=== PATIENT | female | born 1955 | race Caucasian/White ===

== ENCOUNTER 2018-04-24 12:10 | Outpatient (REF) | payer OTHER, SELFPAY ==
[2018-04-24 19:27] LABS: HCT 39.7 % (36.0-46.0); HGB 13.4 g/dL (12.0-15.5); Mean Corp. HGB Concentration 33.8 g/dL (32.0-36.0); Mean Corpuscular Volume 85.9 fL (80-95); Mean Platelet Volume 10.7 fL (8.0-11.0); Platelet Count 234 x1000/uL (130-400); RBC 4.62 m/cumm (4.00-5.20); RBC Distribution Width 12.6 % (11.7-14.6); White Blood Cell Count 11.49 k/cumm (4.4-10.8)
== END 2018-04-24 12:30 ==
LOC: NCHCN 12:10
PROVIDERS: PCP Internal Medicine; Visit Provider Nurse Practitioner Family
DX: K57.92 Diverticulitis of intestine, part unspecified, without perforation or abscess without bleeding (principal)
CPT/HCPCS: 85027

== ENCOUNTER 2018-06-04 15:07 | Outpatient (REF) | payer OTHER, SELFPAY ==
[2018-06-04 19:33] LABS: Anion Gap 10.1 mmol/L (3-11); BUN 13 mg/dL (7-18); CO2 26.9 mmol/L (21.0-32.0); CREATININE 0.77 mg/dL (0.55-1.02); Calcium 9.7 mg/dL (8.5-10.1); Chloride 104 mmol/L (98-107); Glucose 94 mg/dL (70-100); Potassium 3.9 mmol/L (3.5-5.1); Sodium 141 mmol/L (136-145); TSH 0.32 uIU/mL (0.358-3.74)
== END 2018-06-04 15:27 ==
LOC: NCHCN 15:07
PROVIDERS: PCP Internal Medicine; Visit Provider Physician Assistant Medical
DX: E03.9 Hypothyroidism, unspecified (principal)
CPT/HCPCS: 80048; 84443

== ENCOUNTER 2018-12-10 18:53 | Outpatient (REF) | payer OTHER, BC, SELFPAY | END 2018-12-10 19:13 | LOC: NCHCN 18:53 | PROVIDERS: PCP Internal Medicine; Visit Provider Nurse Practitioner Family | DX: N39.0 Urinary tract infection, site not specified (principal) | CPT/HCPCS: 87077; 87086; 87186 ==

== ENCOUNTER 2019-05-12 16:37 | Outpatient (REF) | payer BC, SELFPAY ==
[2019-05-12 18:47] LABS: HGB 12.5 g/dL (12.0-15.5); Mean Corp. HGB Concentration 32.9 g/dL (32.0-36.0); Mean Corpuscular Hemoglobin 28.7 pg (27.0-33.0); Mean Corpuscular Volume 87.2 fL (80-95); Mean Platelet Volume 10.2 fL (8.0-11.0); Platelet Count 416 x1000/uL (130-400); RBC 4.36 m/cumm (4.00-5.20); RBC Distribution Width 12.8 % (11.7-14.6); White Blood Cell Count 11.95 k/cumm (4.4-10.8)
== END 2019-05-12 16:57 ==
LOC: NCHCN 16:37
PROVIDERS: PCP Internal Medicine; Visit Provider Nurse Practitioner Family
DX: R10.32 Left lower quadrant pain (principal)
CPT/HCPCS: 85027

== ENCOUNTER 2020-01-12 14:03 | Outpatient (REF) | payer BC, SELFPAY ==
[2020-01-12 20:13] LABS: Anion Gap 9.3 mmol/L (3-11); BUN 11 mg/dL (7-18); CO2 27.7 mmol/L (21.0-32.0); CREATININE 0.76 mg/dL (0.55-1.02); Calcium 9.6 mg/dL (8.5-10.1); Calculated LDL 165 mg/dL (<100); Chloride 104 mmol/L (98-107); Cholesterol 237 mg/dL (<200); Glucose 88 mg/dL (74-106); HDL Cholesterol 50 mg/dL (40-60); Potassium 4.2 mmol/L (3.5-5.1); Sodium 141 mmol/L (136-145); TSH 2.59 uIU/mL (0.36-3.74); Triglyceride 110 mg/dL (<150)
== END 2020-01-12 14:23 ==
LOC: NCHCN 14:03
PROVIDERS: PCP Internal Medicine; Visit Provider Nurse Practitioner Family
DX: E03.9 Hypothyroidism, unspecified (principal); Z13.220 Encounter for screening for lipoid disorders
CPT/HCPCS: 80048; 80061; 84443

== ENCOUNTER 2020-07-07 18:40 | Outpatient (REF) | payer BC, SELFPAY ==
[2020-07-07 20:29] LABS: Abs Immature Grans 0.01 10^3/uL (0.0-0.06); Absolute Basophil Count 0.06 10^3/uL (0.0-0.2); Absolute Eosinophil Count 0.12 10^3/uL (0.0-0.7); Absolute Lymphocyte Count 2.67 10^3/uL (1.2-3.4); Absolute Monocyte Count 0.57 10^3/uL (0.1-0.8); Absolute Neutrophil Count 3.67 10^3/uL (1.2-6.7); Basophils % 0.8; Eosinophils % 1.7; HCT 40.1 % (36.0-46.0); HGB 13.4 g/dL (11.2-15.7); Immature Grans % 0.1; Lymphocytes % 37.6; MCH 28.9 pg (27.0-33.0); MCHC 33.4 % (32.0-36.0); MCV 86.4 fL (80-95); MPV 11.4 fL (8.0-11.0); Neutrophils % 51.8; Nucleated RBC 0 %; Platelet Count 278 10^3/uL (130-400); RBC 4.64 10^6/uL (3.93-5.22); RDW 12.1 % (11.7-14.6); RDW-SD 38.5 fL
[2020-07-07 21:26] LABS: ALT 31 U/L (14-59); AST 23 U/L (15-37); Albumin 4.2 g/dL (3.4-5.0); Alkaline Phosphatase 70 U/L (46-116); Anion Gap 9.5 mmol/L (3-11); BUN 12 mg/dL (7-18); Bilirubin, Total 0.3 mg/dL (0.2-1.0); C-Reactive Protein 0.14 mg/dL (0.0-0.3); CO2 26.5 mmol/L (21.0-32.0); CREATININE 0.9 mg/dL (0.55-1.02); Calcium 9.3 mg/dL (8.5-10.1); Chloride 105 mmol/L (98-107); Glucose 100 mg/dL (74-106); Magnesium 1.9 mg/dL (1.8-2.4); Potassium 3.6 mmol/L (3.5-5.1); Sodium 141 mmol/L (136-145); TSH (W/Ref FT4) 5.73 uIU/mL (0.36-3.74); Total Protein 7.7 g/dL (6.4-8.2)
[2020-07-07 21:56] LABS: FREE T4 0.89 ng/dL (0.76-1.46)
[2020-07-08 16:42] LABS: Rheumatoid Factor <8.6 IU/mL (<12.0)
[2020-07-09 10:39] LABS: Lyme Ab w Rflx to Lyme Confirm Positive (Negative)
[2020-07-09 16:31] LABS: ANA Interpretation Negative (Negative)
[2020-07-14 14:25] LABS: IgG Band(s) p58; IgG Immunoblot Negative (Negative); IgM Band(s) p23; IgM Immunoblot Negative (Negative)
== END 2020-07-07 18:41 | disposition home or self-care (01) ==
LOC: NCHCN 18:40
PROVIDERS: PCP Internal Medicine; Visit Provider Physician Assistant
DX: E03.9 Hypothyroidism, unspecified (principal); K21.9 Gastro-esophageal reflux disease without esophagitis; M25.59 Pain in other specified joint
CPT/HCPCS: 80053; 86617; 83735; 84439; 84443; 85025; 86038; 86140; 86431; 86618

== ENCOUNTER 2020-08-12 16:49 | Outpatient (REF) | payer BC, SELFPAY ==
[2020-08-12 19:05] LABS: TSH (W/Ref FT4) 1.12 uIU/mL (0.36-3.74)
[2020-08-16 13:36] LABS: Lyme Ab w Rflx to Lyme Confirm Equivocal (Negative)
[2020-08-17 15:13] LABS: IgG Band(s) p93; IgG Immunoblot Negative (Negative); IgM Band(s) p23; IgM Immunoblot Negative (Negative)
== END 2020-08-12 16:50 | disposition home or self-care (01) ==
LOC: NCHCN 16:49
PROVIDERS: PCP Internal Medicine; Visit Provider Physician Assistant
DX: E03.9 Hypothyroidism, unspecified (principal); M25.59 Pain in other specified joint
CPT/HCPCS: 86617; 84443; 86618

== ENCOUNTER 2021-05-11 14:42 | Outpatient (REF) | payer BC, SELFPAY ==
[2021-05-12 21:20] LABS: COVID-19 RT-PCR UVMMC Result Negative (Negative)
== END 2021-05-11 14:43 | disposition home or self-care (01) ==
LOC: NCHCN 14:42
PROVIDERS: PCP Internal Medicine; Visit Provider Nurse Practitioner Family
DX: Z20.822 Contact with and (suspected) exposure to COVID-19 (principal); J06.9 Acute upper respiratory infection, unspecified
CPT/HCPCS: U0003

== ENCOUNTER 2021-10-12 16:56 | Outpatient (REF) | payer BC, SELFPAY ==
[2021-10-12 19:02] LABS: Abs Immature Grans 0.02 10^3/uL (0.0-0.06); Absolute Basophil Count 0.06 10^3/uL (0.0-0.2); Absolute Eosinophil Count 0.13 10^3/uL (0.0-0.7); Absolute Lymphocyte Count 1.85 10^3/uL (1.2-3.4); Absolute Monocyte Count 0.48 10^3/uL (0.1-0.8); Absolute Neutrophil Count 5.22 10^3/uL (1.2-6.7); Basophils % 0.8; Eosinophils % 1.7; HCT 39.5 % (36.0-46.0); HGB 12.6 g/dL (11.2-15.7); Immature Grans % 0.3; Lymphocytes % 23.8; MCH 27.9 pg (27.0-33.0); MCHC 31.9 % (32.0-36.0); MCV 87 fL (80-95); MPV 11.1 fL (8.0-11.0); Monocytes % 6.2; Neutrophils % 67.2; Platelet Count 334 10^3/uL (130-400); RBC 4.52 10^6/uL (3.93-5.22); RDW 12.2 % (11.7-14.6); RDW-SD 39.1 fL; WBC 7.76 10^3/uL (4.4-10.8)
[2021-10-12 19:34] LABS: ALT 25 U/L (14-59); AST 26 U/L (15-37); Albumin 4.1 g/dL (3.4-5.0); Alkaline Phosphatase 84 U/L (46-116); Anion Gap 11.3 mmol/L (3-11); BUN 15 mg/dL (7-18); Bilirubin, Total 0.4 mg/dL (0.2-1.0); CO2 23.7 mmol/L (21.0-32.0); CREATININE 0.8 mg/dL (0.55-1.02); Calcium 9.7 mg/dL (8.5-10.1); Chloride 105 mmol/L (98-107); Glucose 95 mg/dL (74-106); Potassium 4.1 mmol/L (3.5-5.1); Sodium 140 mmol/L (136-145); TSH (W/Ref FT4) 0.24 uIU/mL (0.36-3.74); Total Protein 8.1 g/dL (6.4-8.2)
[2021-10-12 20:42] LABS: Vitamin B12 737 pg/mL (193-986)
[2021-10-12 21:05] LABS: FREE T4 1.28 ng/dL (0.76-1.46)
[2021-10-13 05:27] LABS: Vitamin D 25 Total 62.4 ng/mL (30-100)
== END 2021-10-12 16:57 | disposition home or self-care (01) ==
LOC: NCHCN 16:56
PROVIDERS: PCP Internal Medicine; Visit Provider Physician Assistant
DX: E03.9 Hypothyroidism, unspecified (principal); R53.83 Other fatigue; M81.0 Age-related osteoporosis without current pathological fracture
CPT/HCPCS: 80053; 82306; 82607; 84439; 84443; 85025

== ENCOUNTER 2021-12-09 17:29 | Outpatient (REF) | payer BC, SELFPAY ==
[2021-12-09 19:23] LABS: HCT 38.4 % (36.0-46.0); HGB 12.8 g/dL (11.2-15.7); MCH 28.6 pg (27.0-33.0); MCHC 33.3 % (32.0-36.0); MCV 86 fL (80-95); MPV 11.1 fL (8.0-11.0); Platelet Count 271 10^3/uL (130-400); RBC 4.47 10^6/uL (3.93-5.22); RDW 12.4 % (11.7-14.6); RDW-SD 38.8 fL; WBC 6.57 10^3/uL (4.4-10.8)
[2021-12-09 19:53] LABS: TSH (W/Ref FT4) 0.83 uIU/mL (0.36-3.74)
[2021-12-12 13:10] LABS: IgA 337 mg/dL (85-499); Interpretation (See Note); Tissue Transglutaminase IgA <1.2 U/mL (<4.0)
== END 2021-12-09 17:30 | disposition home or self-care (01) ==
LOC: NCHCN 17:29
PROVIDERS: PCP Internal Medicine; Visit Provider Physician Assistant
DX: E03.9 Hypothyroidism, unspecified (principal); R10.9 Unspecified abdominal pain; K92.1 Melena; Z83.79 Family history of other diseases of the digestive system
CPT/HCPCS: 82784; 83516; 85027; 84443

== ENCOUNTER 2022-10-18 09:28 | Outpatient (REF) | payer BC, SELFPAY ==
--- OUTSIDE RECORDS SUMMARY | 2022-10-18 09:30 | XMS_ITS | Continuity of Care Document ---
Author Name Unknown Organization [facility] Address [address] [place] [address] Care Team Providers Care Filter Plant Operator Name Role Phone Mercedes Chavarria Primary Care Physician Encounter [facility] Date(s): 03/24/22 - 03/24/[address] [address] Discharge Disposition: Home or Self Care Attending Physician: Ryan Lambert MD Admitting Physician: Ryan Lambert MD Referring Physician: Mercedes Chavarria PA-C Allergies, Adverse Reactions, Alerts Substance Reaction Severity Status HONEY Unknown Active ciprofloxacin Unknown Active doxycycline Urticaria Unknown Active erythromycin Skin rash Unknown Active amoxicillin Skin rash Unknown Active aspirin Asthmatic breath sounds Unknown Acti ve influenza virus vaccine, inactivated Skin rash Unkn own Active metroNIDAZOLE Skin rash Unknown Active Mushroom Unknown Active NSAIDs Unknown Active sulfa drugs Unknown Active Assessment and Plan Future Appointments Functional Status 03/24/22 Anti-Embolism Device Activity: In place Anti-Embolism Site Condition: No complic ations 03/24/22 ADLs Independent Family Member Travel History No recent t ravel Recent Travel History No recent travel Other exposure to Infectious Disease Non e Immunizations Given and Recorded Vaccine Date Status Refusal Reason SARS-CoV-2 (COVID-19) Ad26 vaccine 02/10/21 Record ed SARS-CoV-2 (COVID-19) Ad26 vaccine 06/09/20 Record ed Medications doxepin 10 mg oral capsule 0 Refill(s) Start Date: 11/03/21 Status: Ordered lidocaine 5% topical film 1 patches, Topical, Daily, remove patches after 12 hours, # 30 patches, 0 Refill(s), Pharmacy: [id number], 152.4, cm, 11/03/21 10:06:00 EDT, Height/Length Dosing, 58.06, kg, 11/03/21 10:06:00 EDT, Weight Dosing Start Date: 11/03/21 Status: Ordered metoprolol succinate 0 Refill(s) Start Date: 11/03/21 Status: Ordered multivitamin adult, oral tablet 0 Refill(s) Start Date: 11/03/21 Status: Ordered niacin 0 Refill(s) Start Date: 11/03/21 Status: Ordered omeprazole 0 Refill(s) Start Date: 11/03/21 Status: Ordered Percocet 5 mg-325 mg oral tablet 1 tab, Oral, every 6 hr, PRN as needed for pain, for post op pain, # 18 tab, 0 Refill(s), Pharmacy:[id number], 152, cm, 03/18/22 13:55:00 EST, Height/Length Dosing, 58.06, kg, 03/18/22 13:55:00 EST, Weight Dosing Start Date: 03/23/22 Status: Ordered Synthroid 0 Refill(s) Start Date: 11/03/21 Status: Ordered Topamax 0 Refill(s) Start Date: 11/03/21 Status: Ordered Problem List Condition Confirmation Course Effective Dates Status H ealth Status Informant Asthma Confirmed Active Central retinal vein occlusion Confirmed Active Depressive disorder Confirmed Active Diverticulitis Confirmed Active Dysphagia Confirmed Active Fibrocystic disease of breast Confirmed Active Fracture of distal fibula Confirmed Active Gastroesophageal reflux disease Confirmed Active Migraine without aura Confirmed Active Osteoarthritis Confirmed Active Tension-type headache Confirmed Active Procedures Procedure Date Related Diagnosis Body Site Status Colonoscopy 02/07/22 Completed EGD (esophagogastroduodenosc opy) gastric outlet reduction 02/07/22 Complet ed EGD - Esophagogastroduodenoscopy 1 11/20/16 Completed Colonoscopy 01/26/16 Completed Breast lumpectomy 2009 Compl eted Colonoscopy 2009 Completed Dilation and curettage 05/29/05 Co mpleted Colonoscopy 2004 Completed Breast lumpectomy 1996 Complet ed Ovarian cystectomy 1976 Comple ty Tubal ligation Completed 1Reflux 2excision lump Vital Signs Most recent to oldest [Reference Range]: 1 2 3 Temperature Oral [35.8-37.3 Deg C] 37.2 Deg C (03/24/22 7:21 AM) Temperature Temporal Artery [36-38 Deg C] 36.3 Deg C (03/24/22 9:40 AM) Temperature Temporal Artery (DegF) [97.3-100 Deg F] 97.34 Deg F (03/24/22 9:40 AM) Peripheral Pulse Rate [60-100 bpm] 81 bpm (03/24/22 11:00 AM) 92 bpm (03/24/22 10:30 AM) 93 bpm (03/24/22 10:00 AM) Heart Rate Monitored [60-100 bpm] 81 bpm (03/24/22 11:00 AM) 89 bpm (03/24/22 10:30 AM) 93 bpm (03/24/22 10:00 AM) Respiratory Rate [12-24 br/min] 11 br/min *LOW* (03/24/22 11:00 AM) 17 br/min (03/24/22 10:30 AM) 12 br/min (03/24/22 10:00 AM) Blood Pressure [90-140/60-90 mmHg] 150/86mmHg *HI* (03/24/22 11:00 AM) 153/72mmHg *HI* (03/24/22 10:30 AM) 145/87mmHg *HI* (03/24/22 10:00 AM) Mean Arterial Pressure, Cuff [65-140 mmHg] 107 mmHg (03/24/22 11:00 AM) 99 mmHg (03/24/22 10:30 AM) 106 mmHg (03/24/22 10:00 AM) Blood Pressure Location Right arm (03/24/22 7:21 AM) Blood Pressure Method Automatic (03/24/22 7:21 AM) Weight 58.2 kg (03/24/22 7:21 AM) Weight Estimated 58.06 kg (03/22/22 1:43 PM) Height 152 cm (03/24/22 7:21 AM) Social History Social History Type Response Tobacco Never tobacco user T obacco Use:. Sex Female Implantable Device List Procedure Provider Procedure Date Device Type Site Open treatment of bimalleolar ankle fracture (eg, lateral and medial malleoli, or lateral and posterior malleoli, or medial and posterior malleoli), includes internal fixation, when performed Ryan Lambert MD 03/24/22 Non Biological A nkle L Device Identifier Serial Number Lot or Batch Number Manufacturing Date Expiration Date Distinct Identification Code MRI Safety Implantable Status Assigning Authority Unknown Unknown [id number] Unknown 02/27/24 Unknown Unknown Active Unknown Unknown Unknown [id number] Unknown 02/27/24 Unknown Unknown Active Unknown Unknown Unknown [id number] Unknown 02/27/24 Unknown Unknown Active Unknown Unknown Unknown [id number] Unknown 02/27/24 Unknown Unknown Active Unknown Unknown Unknown [id number] Unknown 02/27/24 Unknown Unknown Active Unknown Unknown Unknown [id number] Unknown 02/27/24 Unknown Unknown Active Unknown Unknown Unknown [id number] 03/09/22 Unknown 03/08/24 Unknown Unknown Active Unknown Unknown Unknown [id number] 03/09/22 Unknown 03/08/24 Unknown Unknown Active Unknown Hospital Discharge Instructions Patient Education 03/24/2022 08:57:36 Crutch Use, Adult, [id number] Crutch Use, Adult Crutches are used to take weight off of one of your legs or feet when you stand or walk. You may need crutches to help you heal after an injury or procedure. It is important to use crutches that fit right. Your crutches fit right if: ??? You can fit two or three fingers between your armpit and the crutch. ??? You use your hands, not your armpits, to hold yourself up. It is important that a doctor has seen you use crutches the right way before you use them at home. What are the risks? Using crutches the wrong way can hurt your shoulders, arms, back, armpits, wrists, and hands. To avoid this: ??? Make sure your crutches fit right. ??? Do not put pressure on your armpits when using the crutches. While using crutches, you also have a higher risk of falling. To avoid this: ??? Move objects away from the floor or area where you walk when possible. Get help as needed. ??? Keep walkways well lit. ??? Use a backpack to carry items. How to use your crutches How you use your crutches will depend on why you need them. Your doctor may tell you not to supportyour body weight (bear weight) on your hurt leg. Or your doctor may let you put some, but not all, of your weight on the hurt leg. Follow instructions from your doctor about putting weight on your leg. Do not put weight on your leg in an amount that causes pain. Walking 1. Stand on your good leg and lift both crutches at the same time. 2. Place the crutches one step-length in front of you. Keep your weight over the hand business management manager. 3. Bring the good leg forward to meet the crutches or to land a little bit ahead of them. 4. Repeat. Going up steps If there is no handrail: 1. Walk up to steps and put weight on hand business management manager to step up. 2. Step up with your good leg. 3. Step up with the crutches and your hurt leg. 4. Repeat. If there is a handrail: 1. Hold both crutches in one hand. 2. Place your other hand on the handrail. 3. Put your weight on your arms and lift your good leg up to the step. 4. Bring the crutches and the hurt leg up to that step. 5. Repeat. If you do not feel steady on steps, you can go up steps on your butt. 1. Sit on the lowest step. ??? Have your hurt leg out in front. ??? Hold both crutches flat on the stairs in one hand. 2. Scoot your butt up to the next step. Use your free hand and your good leg to help you do this. Going down steps If there is no handrail: 1. Step down with your hurt leg and crutches. Keep the crutch tips in the center of the step. Do not put crutch tips close to the edge of the step. 2. Step down with your good leg. 3. Repeat. If there is a handrail: 1. Place one hand on the handrail. 2. Hold both crutches with your free hand. 3. Lower your hurt leg and crutches to the step below you. Keep the crutch tips in the center of the step. Do not put the crutch tips close to the edge of the step. 4. Lower your good leg to the next step. 5. Repeat. If you do not feel steady on steps, you can go down steps on your butt. 1. Sit on the highest step. ??? Have your hurt leg out in front. ??? Use your other hand to hold both crutches flat on the stairs. 2. Scoot your butt down to the next step. Use the free hand and your good leg to help you do this. Standing up ??? Move to the edge of the seat. If there is an armrest: 1. Hold the hurt leg forward. 2. Grab the armrest with one hand. Use the other hand to grab the top of the crutches. 3. Use the armrest and your crutches to pull yourself up to stand. If there is no armrest: 1. Hold the hurt leg forward. 2. Hold on to the seat with one hand. Use the other hand to hold the top of the crutches. 3. Use the seat and your crutches to bring yourself up to stand. Sitting down ??? Move back until your leg touches the edge of the seat. If there is an armrest: 1. Hold the hurt leg forward. 2. Grab the armrest with one hand. Use the other hand to grab the top of the crutches. 3. Slowly lower yourself to sit. If there is no armrest: 1. Hold the hurt leg forward. 2. Reach for and hold on to the seat with one hand. Use the other hand to hold on to the top of thecrutches. 3. Slowly lower yourself to sit. Get help if: ??? You feel unsteady using crutches. ??? You have any new pain. ??? You lose feeling (feel numb) or you have a tingling feeling. ??? Your crutches do not fit. Get help right away if: ??? You fall. Summary ??? Crutches are used to take weight off of a leg or foot when you stand or walk. ??? Make sure your crutches fit right, and do not put pressure on your armpits when using the crutches. ??? Follow instructions from your doctor about putting weight on your hurt leg. This information is not intended to replace advice given to you by your health care provider. Make sure you discuss any questions you have with your health care provider. Document Revised: 10/08/2019 Document Reviewed: 10/08/2019 Elsevier Patient Education ?? 2021 [employer] Discharge instructions * Andrew Henderson RN: PERFORM Event Display: Discharge Instructions Authored Date: [id number] MICHAEL RUIZ :1955 Age:66 years Sex:Female Visit Date:03/24/2022 Primary Care Physician: Mercedes Chavarria PA-C Hospital Discharge Instructions We would like to thank you for allowing us to assist you with your healthcare needs. The following includes patient education materials and information regarding your injury/illness. After you leave the hospital, you may get your health information including your test results, physician notes and discharge information by accessing your Patient Portal. Your Next Steps Instructions From Your Care Team Orthopedic Surgery Discharge Instructions keep splint clean and dry until follow up in ortho office non weight bearing on operative side ? Pain Control ?Take your pain relief medication when discomfort first begins. ?Can use stool softener while taking the narcotic to avoid problems with constipation. ?It is okay to start [id number] Naproxen or Ibuprofen??immediately ?? Call your doctor if you: ?Develop a fever over 101 degrees. ?Have increased redness, warmth, discharge, swelling, or hardness around the operative site. ?Circulation changes such as tingling, numbness or your toes appear blue or white. ?Your pain is not adequately controlled, despite taking your pain medication routinely. ?? On the day of surgery, or while taking narcotic pain medication: No driving, operating power equipment,?? drinking alcohol,?? or taking mood altering drugs? Apply warm, moist compress to IV site if sore or red, for 20 minutes, 4 times a day, for 2-3 days.?? Call your doctor if IV site soreness or redness persists. In the event of any problems after surgery, contact your doctor or the Emergency Room @ . Ortho Office: [phone] Scheduled Future Appointments 2022:45 AM EST ?? With: Ryan Lambert MD Where: [facility] [address], [address] [place] [address] Status: Confirmed Your Summary Your Care Team Admitting Physician - Ryan Lambert MD Attending Physician - Ryan Lambert MD Primary Care Physician - Mercedes Chavarria PA-C Referring Physician - Mercedes Chavarria PA-C Allergies HONEY Mushroom NSAIDs amoxicillin??(Skin rash) aspirin??(Asthmatic breath sounds) ciprofloxacin doxycycline??(Urticaria) erythromycin??(Skin rash) influenza virus vaccine, inactivated??(Skin rash) metroNIDAZOLE??(Skin rash) sulfa drugs Education Materials Crutch Use, Adult Crutches are used to take weight off of one of your legs or feet when you stand or walk. You may need crutches to help you heal after an injury or procedure. It is important to use crutches that fit right. Your crutches fit right if: ? You can fit two or three fingers between your armpit and the crutch. ? You use your hands, not your armpits, to hold yourself up. It is important that a doctor has seen you use crutches the right way before you use them at home. What are the risks? Using crutches the wrong way can hurt your shoulders, arms, back, armpits, wrists, and hands. To avoid this: ? Make sure your crutches fit right. ? Do not put pressure on your armpits when using the crutches. While using crutches, you also have a higher risk of falling. To avoid this: ? Move objects away from the floor or area where you walk when possible. Get help as needed. ? Keep walkways well lit. ? Use a backpack to carry items. How to use your crutches How you use your crutches will depend on why you need them. Your doctor may tell you not to supportyour body weight (bear weight) on your hurt leg. Or your doctor may let you put some, but not all, of your weight on the hurt leg. Follow instructions from your doctor about putting weight on your leg. Do not put weight on your leg in an amount that causes pain. Walking 1.?? Stand on your good leg and lift both crutches at the same time. 2.?? Place the crutches one step-length in front of you. Keep your weight over the hand business management manager. 3.?? Bring the good leg forward to meet the crutches or to land a little bit ahead of them. 4.?? Repeat. Going up steps If there is no handrail: 1.?? Walk up to steps and put weight on hand business management manager to step up. 2.?? Step up with your good leg. 3.?? Step up with the crutches and your hurt leg. 4.?? Repeat. If there is a handrail: 1.?? Hold both crutches in one hand. 2.?? Place your other hand on the handrail. 3.?? Put your weight on your arms and lift your good leg up to the step. 4.?? Bring the crutches and the hurt leg up to that step. 5.?? Repeat. If you do not feel steady on steps, you can go up steps on your butt. 1.?? Sit on the lowest step. ? Have your hurt leg out in front. ? Hold both crutches flat on the stairs in one hand. 2.?? Scoot your butt up to the next step. Use your free hand and your good leg to help you do this. Going down steps If there is no handrail: 1.?? Step down with your hurt leg and crutches. Keep the crutch tips in the center of the step. Do not put crutch tips close to the edge of the step. 2.?? Step down with your good leg. 3.?? Repeat. If there is a handrail: 1.?? Place one hand on the handrail. 2.?? Hold both crutches with your free hand. 3.?? Lower your hurt leg and crutches to the step below you. Keep the crutch tips in the center of the step. Do not put the crutch tips close to the edge of the step. 4.?? Lower your good leg to the next step. 5.?? Repeat. If you do not feel steady on steps, you can go down steps on your butt. 1.?? Sit on the highest step. ? Have your hurt leg out in front. ? Use your other hand to hold both crutches flat on the stairs. 2.?? Scoot your butt down to the next step. Use the free hand and your good leg to help you do this. Standing up ? Move to the edge of the seat. If there is an armrest: 1.?? Hold the hurt leg forward. 2.?? Grab the armrest with one hand. Use the other hand to grab the top of the crutches. 3.?? Use the armrest and your crutches to pull yourself up to stand. If there is no armrest: 1.?? Hold the hurt leg forward. 2.?? Hold on to the seat with one hand. Use the other hand to hold the top of the crutches. 3.?? Use the seat and your crutches to bring yourself up to stand. Sitting down ? Move back until your leg touches the edge of the seat. If there is an armrest: 1.?? Hold the hurt leg forward. 2.?? Grab the armrest with one hand. Use the other hand to grab the top of the crutches. 3.?? Slowly lower yourself to sit. If there is no armrest: 1.?? Hold the hurt leg forward. 2.?? Reach for and hold on to the seat with one hand. Use the other hand to hold on to the top of the crutches. 3.?? Slowly lower yourself to sit. Get help if: ? You feel unsteady using crutches. ? You have any new pain. ? You lose feeling (feel numb) or you have a tingling feeling. ? Your crutches do not fit. Get help right away if: ? You fall. Summary ? Crutches are used to take weight off of a leg or foot when you stand or walk. ? Make sure your crutches fit right, and do not put pressure on your armpits when using the crutches. ? Follow instructions from your doctor about putting weight on your hurt leg. This information is not intended to replace advice given to you by your health care provider. Make sure you discuss any questions you have with your health care provider. Document Revised: 10/08/2019 Document Reviewed: 10/08/2019 Elsevier Patient Education ?? 2021 [employer] Patient Name:MICHAEL RUIZ I have received this information and my questions have been answered. Patient/Front Desk Admin Name: Patient/Front Desk Admin Signature: Relationship to Patient: Witness Name/Signature: Date: Electronically Signed on: 03/24/2022 11:00 ESTSigned by:TD History and physical note * Ivory Stroud: PERFORM Event Display: History and Physical Authored Date: [id number] MICHAEL RUIZ :1955 Age:66 years Sex:Female Primary Care Physician: Mercedes Chavarria PA-C Visit Date:??03/22/2022 [1] Chief Complaint L distal fibula fx, DOI 03/18/22--slipped on the ice ?? History of Present Illness Patient??is a??66-year-old female who slipped on the ice on March 18, 2022??with her foot??moving outwards??into E version and she??felt and heard a pop and had pain along the lateral aspect of her??left leg.?? Patient was evaluated??by Dr. Santillan in the emergency room and x-rays revealed her to have a distal fibular fracture just above the syndesmosis. ??She was splinted and she is here in follow-up care.?? 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 She has been on crutches since her injury. ?? Physical Exam Patient seen with her present.?? Looking at the left ankle??there is swelling and bruising laterally with extinct pain along the distal fibula.?? Medially she does have some bruising??but only some mild pain??posterior to the medial malleolus.?? Some mild pain??along the anterior ankle joint.?? Pulses are present distally??x2. ??Calf is soft. ?? X-rays were reviewed left ankle??and we can see that she has a short oblique??fracture??of the distal fibula just above the??syndesmosis.?? Mortise is??intact.?? On the lateral??fracture can be seen??but is nondisplaced. ??Talus centered under the tibia. Assessment/Plan 1.??Fracture of distal fibula??S82.839A ?Patient has a left distal fibular fracture.?? Fracture is just above the syndesmosis??and is short oblique??in orientation.?? We had a??discussion about her options??and??she finally decided toproceed to??reduction and fixation??using plate and screws??which would eliminate the possibility of ??altered position of the ankle in the future.?? It might also shorten??her time??which she has to remain nonweightbearing.?? Risks and complications include injuries to local structures including the??terminal portion of the superficial peroneal nerve. ??There could be infection.?? Hardware may have to be removed.?? Stiffness of the ankle could occur.?? No guarantees were given and the above list of complication was not exhaustive.?? Benefits and alternatives were discussed including not to proceed to surgery??and submitted Manish. ??We could then follow her with x-rays.?? Period of casting??without surgery would likely be longer.?? She preferred to proceed with surgery.?? Questions were an swered and concerns were addressed.?? Patient will be splinted for today??and we will??schedule radha soon as possible.?? She remains out of work till then. ?Ordered: Surgical Procedure Booking Request, 03/22/22 11:01:00 Fausto KIM Stephane MD, Primary Procedure, ORIF Left Distal FIbula, BMI: 24.2 Length of procedure: 1 hr. Dx. Left idstal fibular fracture Procedure: ORIF L Distal Fibula Equipment: [employer] ankle set C-arm Outpatient surgery... ?? Problem List/Past Medical History Ongoing ?Asthma ??Central retinal vein occlusion ??Depressive disorder ??Diverticulitis ??Dysphagia ??Fibrocystic disease of breast ??Fracture of distal fibula ??Gastroesophageal reflux disease ??Migraine without aura ??Osteoarthritis ??Tension-type headache Historical ?No qualifying data Procedure/Surgical History ???EGD - Esophagogastroduodenoscopy (11/21/2016)???Colonoscopy (01/27/2016)???Breast lumpectomy (2009)???Colonoscopy (2009)???Dilation and curettage (05/30/2005)???Colonoscopy (2004)???Breast lumpectomy (1996)???Ovarian cystectomy (1975)???Tubal ligation ?? Medications ??doxepin 10 mg oral capsule ??lidocaine 5% topical film, 1 patches, Topical, Daily ??metoprolol succinate ??multivitamin adult, oral tablet ??niacin ??omeprazole ??Synthroid ??Topamax Allergies HONEY NSAIDs amoxicillin??(Skin rash) aspirin??(Asthmatic breath sounds) ciprofloxacin doxycycline??(Urticaria) erythromycin??(Skin rash) influenza virus vaccine, inactivated??(Skin rash) metroNIDAZOLE??(Skin rash) sulfa drugs [2] [1]??Office Visit Note; Ryan Lambert MD 03/22/2022 12:33 EST [2]??Office Visit Note; Ryan Lambert MD 03/22/2022 12:33 EST Electronically Signed on 03/22/22 02:07 PM Ivory Stroud Ryan Lambert MD Patient Care team information Personnel Name: Mercedes Chavarria PA-C Address: Address: [address] [address]- [place]
--- OUTSIDE RECORDS SUMMARY | 2022-10-18 09:30 | XMS_ITS | Continuity of Care Document ---
Author Name Unknown Organization [facility] Address [address] [place] [address] Care Team Providers Care [employer] Name Role Phone Mercedes Chavarria Primary Care Physician Encounter [email or web address] Date(s): 06/26/22 - 06/26/[address] [phone] Discharge Disposition: Home or Self Care Attending Physician: Mercedes Chavarria PA-C Admitting Physician: Mercedes Chavarria PA-C Referring Physician: Mercedes Chavarria PA-C Allergies, Adverse Reactions, Alerts Substance Reaction Severity Status HONEY Unknown Active ciprofloxacin Unknown Active doxycycline Urticaria Unknown Active erythromycin Skin rash Unknown Active amoxicillin Skin rash Unknown Active aspirin Asthmatic breath sounds Unknown Acti ve influenza virus vaccine, inactivated Skin rash Unkn own Active sulfa drugs Unknown Active NSAIDs Unknown Active metroNIDAZOLE Skin rash Unknown Active Mushroom Unknown Active Assessment and Plan Future Appointments Immunizations Given and Recorded Vaccine Date Status Refusal Reason SARS-CoV-2 (COVID-19) Ad26 vaccine 02/10/21 Record ed SARS-CoV-2 (COVID-19) Ad26 vaccine 06/09/20 Record ed Medications doxepin 10 mg oral capsule 0 Refill(s) Start Date: 11/03/21 Status: Ordered lidocaine 5% topical film 1 patches, Topical, Daily, remove patches after 12 hours, # 30 patches, 0 Refill(s), Pharmacy: [email or web address], 152.4, cm, 11/03/21 10:06:00 EDT, Height/Length [...] op pain, # 18 tab, 0 Refill(s), Pharmacy:[id number], 152, cm, 03/18/22 13:55:00 EST, Height/Length [...] Procedure Date Related Diagnosis Body Site Status ORIF - Open reduction and in ternal fixation of fracture 1 03/23/22 Completed Colonoscopy 02/07/22 Completed EGD (esophagogastroduodenosc opy) gastric outlet reduction 02/07/22 Complet ed EGD - Esophagogastroduodenoscopy 2 11/20/16 Completed Colonoscopy 01/26/16 Completed Breast lumpectomy 2009 Compl eted Colonoscopy 2009 Completed Dilation and curettage 05/29/05 Co mpleted Colonoscopy 2004 Completed Breast lumpectomy 1996 Complet ed Ovarian cystectomy 1976 Comple ty Tubal ligation Completed 1ORIF L distal fibula fx 2Reflux 3excision lump Social History Social History Type Response Tobacco [...] Safety Implantable Status Assigning Authority Unknown Unknown [id number] Unknown 02/27/24 Unknown Unknown Active Unknown Unknown Unknown [id number] Unknown 02/27/24 Unknown Unknown Active Unknown Unknown Unknown [id number] Unknown 02/27/24 Unknown Unknown Active Unknown Unknown Unknown [id number] Unknown 02/27/24 Unknown Unknown Active Unknown Unknown Unknown [id number] Unknown 02/27/24 Unknown Unknown Active Unknown Unknown Unknown [id number] Unknown 02/27/24 Unknown Unknown Active Unknown Unknown Unknown [id number] 03/09/22 Unknown 03/08/24 Unknown Unknown Active Unknown Unknown Unknown [id number] 03/09/22 Unknown 03/08/24 Unknown Unknown Active Unknown Patient Care team information Care Team Personnel Name: Mercedes Chavarria PA-C Position: PowerChart View Only Member Role: Primary Care Physician Address: Address: [place] [address]- Care Team Related Persons Name: ROBERT RUIZ Address: Home [address] [place] [phone] Name: SHARMIN RUIZ Address: [address] [phone] Address: Home [address] [place] [phone] Address: [address] [place] [phone]
--- OUTSIDE RECORDS SUMMARY | 2022-10-18 09:30 | XMS_ITS | Continuity of Care Document ---
Author Name Unknown Organization [facility] Address [address] [place] [address] Care Team Providers Care Packing And Wrapping Supervisor Name Role Phone Mercedes Chavarria Primary Care Physician Encounter [facility] Date(s): 02/08/22 - 02/08/[address] [phone] [place] Discharge Disposition: Home or Self Care Attending Physician: Jose Alejandro Bhakta MD Admitting Physician: Jose Alejandro Bhakta MD Referring Physician: Mercedes Chavarria Allergies, Adverse Reactions, Alerts Substance Reaction Severity Status HONEY Unknown Active ciprofloxacin Unknown Active doxycycline Urticaria Unknown Active erythromycin Skin rash Unknown Active amoxicillin Skin rash Unknown Active aspirin Asthmatic breath sounds Unknown Acti ve influenza virus vaccine, inactivated Skin rash Unkn own Active sulfa drugs Unknown Active NSAIDs Unknown Active metroNIDAZOLE Skin rash Unknown Active Functional Status 02/08/22 ADLs Independent Family Member Travel History No recent t ravel Recent Travel History No recent travel Other exposure to Infectious Disease Non e 02/02/22 Living Situation Home independently Immunizations Given and Recorded Vaccine Date Status Refusal Reason SARS-CoV-2 (COVID-19) Ad26 vaccine 02/10/21 Record ed SARS-CoV-2 (COVID-19) Ad26 vaccine 06/09/20 Record ed Medications doxepin 10 mg oral capsule 0 Refill(s) Start Date: 11/03/21 Status: Ordered lidocaine 5% topical film 1 patches, Topical, Daily, remove patches after 12 hours, # 30 patches, 0 Refill(s), Pharmacy: [id number], 152.4, cm, 11/03/21 10:06:00 EDT, Height/Length Dosing, 58.06, kg, 11/03/21 10:06:00 EDT, Weight Dosing Start Date: 11/03/21 Status: Ordered metoprolol succinate 0 Refill(s) Start Date: 11/03/21 Status: Ordered multivitamin adult, oral tablet 0 Refill(s) Start Date: 11/03/21 Status: Ordered niacin 0 Refill(s) Start Date: 11/03/21 Status: Ordered omeprazole 0 Refill(s) Start Date: 11/03/21 Status: Ordered Synthroid 0 Refill(s) Start Date: 11/03/21 Status: Ordered Topamax 0 Refill(s) Start Date: 11/03/21 Status: Ordered Problem List Condition Confirmation Course Effective Dates Status H ealth Status Informant Asthma Confirmed Active Central retinal vein occlusion Confirmed Active Depressive disorder Confirmed Active Diverticulitis Confirmed Active Dysphagia Confirmed Active Fibrocystic disease of breast Confirmed Active Gastroesophageal reflux disease Confirmed Active Migraine without aura Confirmed Active Osteoarthritis Confirmed Active Tension-type headache Confirmed Active Procedures Procedure Date Related Diagnosis Body Site Status EGD - Esophagogastroduodenoscopy 1 11/20/16 Completed Colonoscopy 01/26/16 Completed Breast lumpectomy 2009 Compl eted Colonoscopy 2009 Completed Dilation and curettage 05/29/05 Co mpleted Colonoscopy 2004 Completed Breast lumpectomy 1996 Complet ed Ovarian cystectomy 1975 Comple ty Tubal ligation Completed 1Reflux 2excision lump Results Laboratory List Name Date Helicobacter Pylori Urease 02/08/22 Most recent to oldest [Reference Range]: 1 Helicobacter Pylori Urease [Negative] Ne gative (02/08/22 12:30 PM) Vital Signs Most recent to oldest [Reference Range]: 1 2 3 Temperature Oral [35.8-37.3 Deg C] 36.0 Deg C (02/08/22 9:10 AM) Temperature Temporal Artery [36-38 Deg C] 36.5 Deg C (02/08/22 10:45 AM) 36.5 Deg C (02/08/22 10:24 AM) Temperature Temporal Artery (DegF) [97.3-100 Deg F] 97.7 Deg F (02/08/22 10:45 AM) 97.7 Deg F (02/08/22 10:24 AM) Peripheral Pulse Rate [60-100 bpm] 97 bpm (02/08/22 11:02 AM) 93 bpm (02/08/22 10:45 AM) 96 bpm (02/08/22:41 AM) Heart Rate Monitored [60-100 bpm] 97 bpm (02/08/22:02 AM) 93 bpm (02/08/22:45 AM) 96 bpm (02/08/22:41 AM) Respiratory Rate [12-24 br/min] 15 br/min (02/08/22:02 AM) 12 br/min (02/08/2245 AM) 17 br/min (02/08/22:41 AM) Blood Pressure [90-140/60-90 mmHg] 115/78mmHg (02/08/22:02 AM) 111/86mmHg (02/08/2245 AM) 129/78mmHg (02/08/22:30 AM) Mean Arterial Pressure, Cuff [65-140 mmHg] 90 mmHg (02/08/22: AM) 94 mmHg (02/08/22:45 AM) 95 mmHg (02/08/22:30 AM) Weight 56.5 kg (02/08/22 9:10 AM) 58.000 kg (02/02/22 10:15 AM) Weight Dosing 58.000 kg (02/02/22 10:15 AM) Height 152 cm (02/08/22 9:10 AM) 152.000 cm (02/02/22 10:15 AM) Height/Length Dosing 152.000 cm (02/02/22 10:15 AM) Social History Social History Type Response Tobacco Never tobacco user T obacco Use:. Sex Female Hospital Discharge Instructions Patient Education 02/08/2022 09:46:07 Hiatal Hernia Hiatal Hernia A hiatal hernia occurs when part of the stomach slides above the muscle that separates the abdomen from the chest (diaphragm). A person can be born with a hiatal hernia (congenital), or it may develop over time. In almost all cases of hiatal hernia, only the top part of the stomach pushes through the diaphragm. Many people have a hiatal hernia with no symptoms. The larger the hernia, the more likely it is that you will have symptoms. In some cases, a hiatal hernia allows stomach acid to flow back into the tube that carries food from your mouth to your stomach (esophagus). This may cause heartburn symptoms. Severe heartburn symptoms may mean that you have developed a condition called gastroesophageal reflux disease (GERD). What are the causes? This condition is caused by a weakness in the opening (hiatus) where the esophagus passes through the diaphragm to attach to the upper part of the stomach. A person may be born with a weakness in thehiatus, or a weakness can develop over time. What increases the risk? This condition is more likely to develop in: ??? Older people. Age is a major risk factor for a hiatal hernia, especially if you are over the age of 50. ??? women. ??? People who are overweight. ??? People who have frequent constipation. What are the signs or symptoms? Symptoms of this condition usually develop in the form of GERD symptoms. Symptoms include: ??? Heartburn. ??? Belching. ??? Indigestion. ??? Trouble swallowing. ??? Coughing or wheezing. ??? Sore throat. ??? Hoarseness. ??? Chest pain. ??? Nausea and vomiting. How is this diagnosed? This condition may be diagnosed during testing for GERD. Tests that may be done include: ??? X-rays of your stomach or chest. ??? An upper gastrointestinal (GI) series. This is an X-ray exam of your GI tract that is taken after you swallow a chalky liquid that shows up clearly on the X-ray. ??? Endoscopy. This is a procedure to look into your stomach using a thin, flexible tube that has atiny camera and light on the end of it. How is this treated? This condition may be treated by: ??? Dietary and lifestyle changes to help reduce GERD symptoms. ??? Medicines. These may include: ??? Rgpf-rfk-naqkwcd antacids. ??? Medicines that make your stomach empty more quickly. ??? Medicines that block the production of stomach acid (H2 blockers). ??? Stronger medicines to reduce stomach acid (proton pump inhibitors). ??? Surgery to repair the hernia, if other treatments are not helping. If you have no symptoms, you may not need treatment. Follow these instructions at home: Lifestyle and activity ??? Do not use any products that contain nicotine or tobacco, such as cigarettes and e-cigarettes. If you need help quitting, ask your health care provider. ??? Try to achieve and maintain a healthy body weight. ??? Avoid putting pressure on your abdomen. Anything that puts pressure on your abdomen increases the amount of acid that may be pushed up into your esophagus. ??? Avoid bending over, especially after eating. ??? Raise the head of your bed by putting blocks under the legs. This keeps your head and esophagushigher than your stomach. ??? Do not wear tight clothing around your chest or stomach. ??? Try not to strain when having a bowel movement, when urinating, or when lifting heavy objects. Eating and drinking ??? Avoid foods that can worsen GERD symptoms. These may include: ??? Fatty foods, like fried foods. ??? Juniata fruits, like oranges or lemon. ??? Other foods and drinks that contain acid, like orange juice or tomatoes. ??? Spicy food. ??? Chocolate. ??? Eat frequent small meals instead of three large meals a day. This helps prevent your stomach from getting too full. ??? Eat slowly. ??? Do not lie down right after eating. ??? Do not eat 1???2 hours before bed. ??? Do not drink beverages with caffeine. These include cola, coffee, cocoa, and tea. ??? Do not drink alcohol. General instructions ??? Take raqy-zlo-jqhtqac and prescription medicines only as told by your health care provider. ??? Keep all follow-up visits as told by your health care provider. This is important. Contact a health care provider if: ??? Your symptoms are not controlled with medicines or lifestyle changes. ??? You are having trouble swallowing. ??? You have coughing or wheezing that will not go away. Get help right away if: ??? Your pain is getting worse. ??? Your pain spreads to your arms, neck, jaw, teeth, or back. ??? You have shortness of breath. ??? You sweat for no reason. ??? You feel sick to your stomach (nauseous) or you vomit. ??? You vomit blood. ??? You have bright red blood in your stools. ??? You have black, tarry stools. Summary ??? A hiatal hernia occurs when part of the stomach slides above the muscle that separates the abdomen from the chest (diaphragm). ??? A person may be born with a weakness in the hiatus, or a weakness can develop over time. ??? Symptoms of hiatal hernia may include heartburn, trouble swallowing, or sore throat. ??? Management of hiatal hernia includes eating frequent small meals instead of three large meals aday. ??? Get help right away if you vomit blood, have bright red blood in your stools, or have black, tarry stools. This information is not intended to replace advice given to you by your health care provider. Make sure you discuss any questions you have with your health care provider. Document Revised: 02/17/2021 Document Reviewed: 02/17/2021 [employer] Patient Education ?? 2021 [employer]. 02/08/2022 09:44:20 ss UPPER ENDOSCOPY OR GASTROSCOPY (CUSTOM) UPPER ENDOSCOPY OR GASTROSCOPY FOLLOWING DAY: ??? Return to full activity, including work. DIET: Eat and drink normally, unless instructed otherwise. TREATMENT FOR COMMON AFTER EFFECTS: Sore throat: ??? Treat with throat lozenges; gargle with warm salt water. Mild abdominal pain and bloating: ??? Rest and take liquids. SYMPTOMS TO WATCH FOR AND REPORT TO YOUR PHYSICIAN: 1. Chills or fever occurring within 24 hours after procedure. 2. Pain in chest. 3. SEVERE abdominal pain or bloating. 4. If sclerotherapy or dilatation was performed, notify physician for vomiting or bright red blood or dark stools. Do not attempt to drive a vehicle or operate power equipment of any kind for at least 24 hours after discharge from the hospital. Do not consume alcoholic beverages or other mood-altering drugs on the day of surgery. Mild irritation at needle site: a. Apply warm, moist pack to area for 20 minutes four times a day for 2-3 days. b. Call physician if persistent redness and/or drainage at needle site. Doctor: Diagnosis: Follow up appointment: In the event of any problems after surgery, do not hesitate to contact your doctor, [facility] , or the Emergency Room at [phone]. 02/08/2022 09:44:05 ss colonoscopy discharge instructions (CUSTOM) COLONOSCOPY / SIGMOIDOSCOPY Following day: Return to full activity, including work. Diet: Eat and drink normally, unless instructed otherwise. Treatment for common after affects: Mild abdominal pain, bloating, or excessive gas: Rest, eat lightly and use a heating pad. Symptoms to watch for and report to your physician: SEVERE abdominal pain or bloating. Fever within 24 hours after procedure. A large amount of rectal bleeding. (A small amount of blood from the rectum is not serious, especially if hemorrhoids are present.) If a polyp has been removed- for the next seven days: Do not take aspirin. If you did NOT stop taking aspirin before your procedure, continue taking it even if you???ve had a polyp removed. If bright red rectal bleeding occurs, call your physician. If you have had a Colonoscopy: Do not attempt to drive a vehicle or operate power equipment of any kind for at least 24 hours after discharge from the hospital. Do not consume alcoholic beverages or other mood-altering drugs on the day of surgery. Mild irritation at needle site: Apply warm, moist pack to area for 20 minutes four times a day for 2-3 days. Call physician if persistent redness and/or drainage at needle site. In the event of any problems after surgery, do not hesitate to contact your doctor, [facility] , or the Emergency Room at [phone]. Diagnosis: Doctor: Follow Up Appointment: Discharge instructions * Andrew Henderson RN: PERFORM Event Display: Discharge Instructions Authored Date: [id number] MICHAEL RUIZ :1955 Age:66 years Sex:Female Visit Date:02/08/2022 Primary Care Physician: Mercedes Chavarria [facility] Discharge Instructions We would like to thank you for allowing us to assist you with your healthcare needs. The following includes patient education materials and information regarding your injury/illness. After you leave the hospital, you may get your health information including your test results, physician notes and discharge information by accessing your Patient Portal. Your Next Steps Discharge Orders Discharge Patient Instructions, Rest today. Resume diet and activities as tolerated. Your Summary Your Care Team Admitting Physician - Jose Alejandro Bhakta MD Attending Physician - Jose Alejandro Bhakta MD Primary Care Physician - Mercedes Chavarria Referring Physician - Mercedes Chavarria Tests Performed/Pending Helicobacter Pylori Urease?-- Results Pending -- You will be contacted within 72 hours with your results. Allergies HONEY NSAIDs amoxicillin??(Skin rash) aspirin??(Asthmatic breath sounds) ciprofloxacin doxycycline??(Urticaria) erythromycin??(Skin rash) influenza virus vaccine, inactivated??(Skin rash) metroNIDAZOLE??(Skin rash) sulfa drugs Education Materials Hiatal Hernia A hiatal hernia occurs when part of the stomach slides above the muscle that separates the abdomen from the chest (diaphragm). A person can be born with a hiatal hernia (congenital), or it may develop over time. In almost all cases of hiatal hernia, only the top part of the stomach pushes through the diaphragm. Many people have a hiatal hernia with no symptoms. The larger the hernia, the more likely it is that you will have symptoms. In some cases, a hiatal hernia allows stomach acid to flow back into the tube that carries food from your mouth to your stomach (esophagus). This may cause heartburn symptoms. Severe heartburn symptoms may mean that you have developed a condition called gastroesophageal reflux disease (GERD). What are the causes? This condition is caused by a weakness in the opening (hiatus) where the esophagus passes through the diaphragm to attach to the upper part of the stomach. A person may be born with a weakness in thehiatus, or a weakness can develop over time. What increases the risk? This condition is more likely to develop in: ? Older people. Age is a major risk factor for a hiatal hernia, especially if you are over the age of50. ? women. ? People who are overweight. ? People who have frequent constipation. What are the signs or symptoms? Symptoms of this condition usually develop in the form of GERD symptoms. Symptoms include: ? Heartburn. ? Belching. ? Indigestion. ? Trouble swallowing. ? Coughing or wheezing. ? Sore throat. ? Hoarseness. ? Chest pain. ? Nausea and vomiting. How is this diagnosed? This condition may be diagnosed during testing for GERD. Tests that may be done include: ? X-rays of your stomach or chest. ? An upper gastrointestinal (GI) series. This is an X-ray exam of your GI tract that is taken after you swallow a chalky liquid that shows up clearly on the X-ray. ? Endoscopy. This is a procedure to look into your stomach using a thin, flexible tube that has a tiny camera and light on the end of it. How is this treated? This condition may be treated by: ? Dietary and lifestyle changes to help reduce GERD symptoms. ? Medicines. These may include: ? Lckq-nke-gzuvbuo antacids. ? Medicines that make your stomach empty more quickly. ? Medicines that block the production of stomach acid (H2 blockers). ? Stronger medicines to reduce stomach acid (proton pump inhibitors). ? Surgery to repair the hernia, if other treatments are not helping. If you have no symptoms, you may not need treatment. Follow these instructions at home: Lifestyle and activity ? Do not use any products that contain nicotine or tobacco, such as cigarettes and e-cigarettes. If you need help quitting, ask your health care provider. ? Try to achieve and maintain a healthy body weight. ? Avoid putting pressure on your abdomen. Anything that puts pressure on your abdomen increases the amount of acid that may be pushed up into your esophagus. ? Avoid bending over, especially after eating. ? Raise the head of your bed by putting blocks under the legs. This keeps your head and esophagus higher than your stomach. ? Do not wear tight clothing around your chest or stomach. ? Try not to strain when having a bowel movement, when urinating, or when lifting heavy objects. Eating and drinking ? Avoid foods that can worsen GERD symptoms. These may include: ? Fatty foods, like fried foods. ? Juniata fruits, like oranges or lemon. ? Other foods and drinks that contain acid, like orange juice or tomatoes. ? Spicy food. ? Chocolate. ? Eat frequent small meals instead of three large meals a day. This helps prevent your stomach from getting too full. ? Eat slowly. ? Do not lie down right after eating. ? Do not eat 1???2 hours before bed. ? Do not drink beverages with caffeine. These include cola, coffee, cocoa, and tea. ? Do not drink alcohol. General instructions ? Take spsc-aqd-jnmrlqd and prescription medicines only as told by your health care provider. ? Keep all follow-up visits as told by your health care provider. This is important. Contact a health care provider if: ? Your symptoms are not controlled with medicines or lifestyle changes. ? You are having trouble swallowing. ? You have coughing or wheezing that will not go away. Get help right away if: ? Your pain is getting worse. ? Your pain spreads to your arms, neck, jaw, teeth, or back. ? You have shortness of breath. ? You sweat for no reason. ? You feel sick to your stomach (nauseous) or you vomit. ? You vomit blood. ? You have bright red blood in your stools. ? You have black, tarry stools. Summary ? A hiatal hernia occurs when part of the stomach slides above the muscle that separates the abdomen from the chest (diaphragm). ? A person may be born with a weakness in the hiatus, or a weakness can develop over time. ? Symptoms of hiatal hernia may include heartburn, trouble swallowing, or sore throat. ? Management of hiatal hernia includes eating frequent small meals instead of three large meals a day. ? Get help right away if you vomit blood, have bright red blood in your stools, or have black, tarry stools. This information is not intended to replace advice given to you by your health care provider. Make sure you discuss any questions you have with your health care provider. Document Revised: 02/17/2021 Document Reviewed: 02/17/2021 [employer] Patient Education ?? 2021 [employer] UPPER ENDOSCOPY OR GASTROSCOPY FOLLOWING DAY: ??? Return to full activity, including work. DIET: Eat and drink normally, unless instructed otherwise. TREATMENT FOR COMMON AFTER EFFECTS: Sore throat: ??? Treat with throat lozenges; gargle with warm salt water. Mild abdominal pain and bloating: ??? Rest and take liquids. SYMPTOMS TO WATCH FOR AND REPORT TO YOUR PHYSICIAN: 1. Chills or fever occurring within 24 hours after procedure. 2. Pain in chest. 3. SEVERE abdominal pain or bloating. 4. If sclerotherapy or dilatation was performed, notify physician for vomiting or bright red blood or dark stools. Do not attempt to drive a vehicle or operate power equipment of any kind for at least 24 hours after discharge from the hospital. Do not consume alcoholic beverages or other mood-altering drugs on the day of surgery. Mild irritation at needle site: a. Apply warm, moist pack to area for 20 minutes four times a day for 2-3 days. b. Call physician if persistent redness and/or drainage at needle site. ? Doctor: Diagnosis: Follow up appointment: ? In the event of any problems after surgery, do not hesitate to contact your doctor, [facility] , or the Emergency Room at [phone]. COLONOSCOPY / SIGMOIDOSCOPY ? Following day: Return to full activity, including work. Diet: Eat and drink normally, unless instructed otherwise. ? Treatment for common after affects: Mild abdominal pain, bloating, or excessive gas: Rest, eat lightly and use a heating pad. ? Symptoms to watch for and report to your physician: SEVERE abdominal pain or bloating. ? Fever within 24 hours after procedure. ? A large amount of rectal bleeding. (A small amount of blood from the rectum is not serious, especially if hemorrhoids are present.) ? If a polyp has been removed- for the next seven days: Do not take aspirin. If you did NOT stop taking aspirin before your procedure, continue taking it even if you???ve had a polyp removed. ? If bright red rectal bleeding occurs, call your physician. ? If you have had a Colonoscopy: Do not attempt to drive a vehicle or operate power equipment of any kind for at least 24 hours after discharge from the hospital. ? Do not consume alcoholic beverages or other mood-altering drugs on the day of surgery. ? Mild irritation at needle site: Apply warm, moist pack to area for 20 minutes four times a day for 2-3 days. ? Call physician if persistent redness and/or drainage at needle site. ? In the event of any problems after surgery, do not hesitate to contact your doctor, [facility] , or the Emergency Room at [phone]. Diagnosis: Doctor: Follow Up Appointment: Patient Name:SARA MICHAEL D I have received this information and my questions have been answered. 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 History of Present Illness Pilar is a 66-year-old female??status post colonoscopy from 2015??that showed??pancolonic diverticulosis??without polyps.?? Over the past??few months she is started to note??more frequent bloody stools.?? She also has some watery stools??without lower abdominal discomfort??that would be consistent with diverticulitis. She has a history of GERD??for which she is taking omeprazole,??over the past few months she has had more issues with dysphagia??and some epigastric discomfort.?? Her last EGD was greater than??5 years ago.?? Her last H&H approximately 3 weeks ago was normal Review of Systems Normal Physical Exam HEENT??eyes are nonicteric?pupils equal??trachea is midline without deviation Cardiac sounds were regular rate and rhythm Pulmonary clear to auscultation Abdomen soft??no masses or tenderness or herniations Assessment/Plan ?? History of??bloody stools that is become more symptomatic for the last??3 months Worsening dysphagia and some epigastric discomfort while??on omeprazole We will plan to proceed with both colonoscopy and??EGD Problem List/Past Medical History Ongoing ?No chronic problems Historical ?No qualifying data Medications ??doxepin 10 mg oral capsule ??lidocaine 5% topical film, 1 patches, Topical, Daily, remove patches after 12 hours ??metoprolol succinate ??multivitamin adult, oral tablet ??niacin ??omeprazole ??Synthroid ??Topamax Allergies HONEY NSAIDs amoxicillin??(Skin rash) aspirin??(Asthmatic breath sounds) ciprofloxacin doxycycline??(Urticaria) erythromycin??(Skin rash) influenza virus vaccine, inactivated??(Skin rash) metroNIDAZOLE??(Skin rash) sulfa drugs Social History Electronic Cigarette/Vaping ??Electronic Cigarette Use: Never. Tobacco ??Never tobacco user Tobacco Use:. ? Signature Line Electronically Signed on 01/10/22 03:02 PM Jose Alejandro Bhakta MD [1] [1]??Office Visit Note; Jose Alejandro Bhakta MD 01/10/2022 14:57 EDT Electronically Signed on 01/11/22 08:26 AM Janeth Oliva * Jose Alejandro Bhakta MD: PERFORM Event Display: History and Physical Authored Date: [id number] updated H&P Electronically Signed on 02/08/22 07:36 AM Jose Alejandro Bhakta MD Patient Care team information Care Team Personnel Name: Mercedes Chavarria Position: PowerChart View Only Member Role: Primary Care Physician Address: Address: [address] [address]- Care Team Related Persons Name: SARAROBERT RODRIGUEZ Address: Home [address] [place] [phone]
--- OUTSIDE RECORDS SUMMARY | 2022-10-18 09:30 | XMS_ITS | Continuity of Care Document ---
Author Name Unknown Organization [facility] Address [address] [place] [address] Care Team Providers Care Embedded Case Manager Name Role Phone Mercedes Chavarria Primary Care Physician [phone] [facility] Date[facility] 06/05/22 - 06/05/[address] [address] Discharge Disposition: Home or Self Care Attending [...] hours, # 30 patches, 0 Refill(s), Pharmacy: [facility], 152.4, cm, 11/03/21 10:06:00 EDT, Height/Length [...] op pain, # 18 tab, 0 Refill(s), Pharmacy:[facility], 152, cm, 03/18/22 13:55:00 EST, Height/Length [...] malleoli), includes internal fixation, when performed Ryan Lamebrt MD 03/24/22 Non Biological [employer] L Device Identifier Serial Number Lot or Batch Number Manufacturing Date Expiration Date Distinct Identification Code MRI Safety Implantable Status Assigning Authority Unknown Unknown [id number] Unknown 02/27/24 Unknown Unknown Active Unknown Unknown Unknown [id number] Unknown 02/27/24 Unknown Unknown Active Unknown Unknown Unknown [id number] Unknown 02/27/24 Unknown Unknown Active Unknown Unknown Unknown [id number] Unknown 02/27/24 Unknown Unknown Active Unknown Unknown Unknown [id number] Unknown 02/27/24 Unknown Unknown Active Unknown Unknown Unknown [id number] Unknown 02/27/24 Unknown Unknown Active Unknown Unknown Unknown M1L4 03/09/22 Unknown 03/08/24 Unknown Unknown Active Unknown Unknown Unknown M1L4 03/09/22 Unknown 03/08/24 Unknown Unknown Active Unknown Patient Care team information Care Team Personnel Name: Mercedes Chavarria PA-C Position: PowerChart View Only Member Role: Primary Care Physician Address: Address: [place] [address]- Care Team Related Persons Name: ROBERT RUIZ Address: Home [address] [place] [phone] Name: SHARMIN RUIZ Address: [address] [phone] Address: Home [address] [place] [phone] Address: [address] [place] [phone]
--- OUTSIDE RECORDS SUMMARY | 2022-10-18 09:30 | XMS_ITS | Continuity of Care Document ---
Author Name Unknown Organization [facility] Address [address] [place] [address] Care Team Providers Care Braider Operator Name Role Phone Mercedes Chavarria Primary Care Physician Encounter [facility] Date(s): 03/18/22 - 03/18/22 [facility] [address] [place] [address] Encounter Diagnosis Fracture of fibula(Discharge Diagnosis) - 03/18/22 Discharge Disposition: Home or Self Care Attending Physician: Carmelita Jones MD Admitting Physician: Carmelita Jones MD Allergies, Adverse Reactions, Alerts Substance Reaction Severity Status HONEY Unknown Active ciprofloxacin Unknown Active doxycycline Urticaria Unknown Active erythromycin Skin rash Unknown Active amoxicillin Skin rash Unknown Active aspirin Asthmatic breath sounds Unknown Acti ve influenza virus vaccine, inactivated Skin rash Unkn own Active sulfa drugs Unknown Active NSAIDs Unknown Active metroNIDAZOLE Skin rash Unknown Active Functional Status 03/18/22 Other exposure to Infectious Disease Non e Immunizations Given and Recorded Vaccine Date Status Refusal Reason SARS-CoV-2 (COVID-19) Ad26 vaccine 02/10/21 Record ed SARS-CoV-2 (COVID-19) Ad26 vaccine 06/09/20 Record ed Medications doxepin 10 mg oral capsule 0 Refill(s) Start Date: 11/03/21 Status: Ordered lidocaine 5% topical film 1 patches, Topical, Daily, remove patches after 12 hours, # 30 patches, 0 Refill(s), Pharmacy: [facility], 152.4, cm, 11/03/21 10:06:00 EDT, Height/Length [...] Most recent to oldest [Reference Range]: 1 Temperature Temporal Artery [36-38 Deg C ] 36.8 Deg C (03/18/22 1:33 PM) Peripheral Pulse Rate [60-100 bpm] 82 bp m (03/18/22 1:33 PM) Respiratory Rate [12-24 br/min] 18 br/mi n (03/18/22 1:33 PM) Blood Pressure [90-140/60-90 mmHg] 151/9 0mmHg *HI* (03/18/22 1:33 PM) Weight Dosing 58.06 kg (03/18/22 1:55 PM) Weight Estimated 58.06 kg (03/18/22 1:33 PM) Height/Length Dosing 152.000 cm (03/18/22 1:55 PM) Height/Length Estimated 152.000 cm (03/18/22 1:33 PM) Social History Social History Type Response Tobacco Never tobacco user T obacco Use:. Sex Female Hospital Discharge Instructions Patient Education 03/18/2022 14:35:42 Cast or Splint Care, Adult Cast or Splint Care, Adult Casts and splints are supports that are worn to protect broken bones and other injuries. A cast or splint may hold a bone still and in the correct position while it heals. Casts and splints may also help to ease pain, swelling, and muscle spasms. A cast is a hardened support that is usually made of fiberglass or plaster. It is custom-fit to thebody and offers more protection than a splint. Most casts cannot be taken off and put back on. A splint is a type of soft support that is usually made from cloth and elastic. It can be adjusted or taken off as needed. Often when a bone is broken, a splint is put on until the swelling goes down, andthen the splint is replaced by a cast. You may need a cast or a splint if you: ??? Have a broken bone. ??? Have a soft-tissue injury. ??? Need to keep an injured body part from moving (keep it immobile) after surgery. What are the risks? In some cases, wearing a cast or splint can cause a reduced blood supply to the wrist or hand or tothe foot and toes. This can happen if there is a lot of swelling or if the cast or splint is too tight. Limited blood supply results in a condition called compartment syndrome and can cause permanentdamage. Symptoms include: ??? Pain that is getting worse. ??? Numbness and tingling. ??? Changes in skin color, including paleness or a bluish color. ??? Cold fingers or toes. Other complications of wearing a cast or splint can include: ??? Skin irritation that can cause itching, rash, skin sores, or skin infection. ??? Limb stiffness or weakness. How to care for a cast ??? Check the skin around it every day. Tell your health care provider about any concerns. ??? Do not stick anything inside it to scratch your skin. Doing that increases your risk of infection. ??? You may put lotion on dry skin around the edges of the cast. Do not put lotion on the skin underneath it. ??? Keep it clean and dry. How to care for a splint ??? Wear it as told by your health care provider. Remove it only as told by your health care provider. ??? Check the skin around it every day. Tell your health care provider about any concerns. ??? Loosen it if your fingers or toes tingle, become numb, or turn cold and blue. ??? Keep it clean and dry. Clean your splint as told by your health care provider. Use mild soap and water and let it air-dry. Do not use heat on your splint. Follow these instructions at home: Bathing ??? Do not take baths, swim, or use a hot tub until your health care provider approves. Ask your health care provider if you may take showers. You may only be allowed to take sponge baths. ??? If the cast or splint is not waterproof: ??? Do not let it get wet. ??? Cover it with a watertight covering when you take a bath or shower. Managing pain, stiffness, and swelling ??? If directed, put ice on the affected area. To do this: ??? If you have a removable cast or splint, remove it as told by your health care provider. ??? Put ice in a plastic bag. ??? Place a towel between your skin and the bag or between your cast and the bag. ??? Leave the ice on for 20 minutes, 2???3 times a day. ??? Move your fingers or toes often to reduce stiffness and swelling. ??? Raise (elevate) the injured area above the level of your heart while you are sitting or lying down. Safety ??? Do not use the injured limb to support your body weight until your health care provider says that you can. Use crutches or other assistive devices as told by your health care provider. ??? Ask your health care provider when it is safe to drive if you have a cast or splint on part of your body. General instructions ??? Do not put pressure on any part of the cast or splint until it is fully hardened. This may takeseveral hours. ??? Take kfih-pkk-klxqnvh and prescription medicines only as told by your health care provider. ??? Do not use any products that contain nicotine or tobacco, such as cigarettes, e-cigarettes, andchewing tobacco. These can delay healing. If you need help quitting, ask your health care provider. ??? Return to your normal activities as told by your health care provider. Ask your health care provider what activities are safe for you. ??? Keep all follow-up visits as told by your health care provider. This is important. Contact a health care provider if: ??? The skin around the cast or splint gets red or raw. ??? The skin under the cast is extremely itchy or painful. ??? Your cast or splint: ??? Gets damaged. ??? Feels very uncomfortable. ??? Is too tight or too loose. ??? Your cast becomes wet or develops a soft spot or area. ??? You notice a bad smell coming from under your cast. ??? You get an object stuck under your cast. Get help right away if: ??? You develop any symptoms of compartment syndrome, such as: ??? Severe pain or pressure under the cast. ??? Numbness, tingling, coldness, or pale or bluish skin. ??? The part of your body above or below the cast is swollen and discolored. ??? You cannot feel or move your fingers or toes. ??? Your pain is getting worse. ??? There is fluid leaking through the cast. ??? You have trouble breathing or shortness of breath. ??? You have chest pain. Summary ??? Casts and splints are worn to protect broken bones and other injuries. ??? Most casts are not removable, and splints are removable. ??? Casts and splints should remain clean and dry. ??? Remove your cast or splint only as told by your health care provider. ??? Get help right away if your pain gets worse, or if you have numbness, tingling, or skin that turns cold, blue, or discolored. This information is not intended to replace advice given to you by your health care provider. Make sure you discuss any questions you have with your health care provider. Document Revised: 05/12/2020 Document Reviewed: 12/04/2019 [employer] Patient Education ?? 2021 [employer] Follow Up Care 03/18/2022 13:33:26 With:Follow up with Orthopedic Address: When:1 to 2 weeks Physician Emergency department Note * Carmelita Jones MD: PERFORM Event Display: ED Note Physician Authored Date: [id number] SARA MICHAEL Moo :1955 Age:66 years Sex:Female Visit Date:03/18/2022 Primary Care Physician: Mercedes Chavarria PA-C Basic Information Time Seen: Carmelita Jones MD / 03/18/2022 14:45 Chief Complaint Slipped on ice, rolled L ankle, heard a pop and felt immediate pain, unable to tolerate bearing weight. History Of Present Illness: Patient slipped on the ice and fell hearing a pop and pain to??lateral left lower leg. ??Patient was checking her mother's mail??she told her mom she did not want??her to slip and fall while checkingher mail??so patient fell??on ice. ??No tingling??no numbness. Review of Systems: see hpi for ros Physical Exam Vitals & Measurements T:??36.8?C ??(Temporal Artery)?? HR:??82??(Peripheral)?? RR:??18?? BP:??151/90?? SpO2:??97%?? HT:??152.000??cm?? WT:??58.06??kg??(Estimated)?? Pain Score:??10?? O2 Therapy:??Room air?? General: Alert and oriented, well nourished,?No??acute distress Eye: PER,?Normal??conjunctiva, No scleral icterus HENT: Normocephalic?Normal?? hearing?? Respiratory:??Respiration??no distress??no increased work of breathing Heart:??Capillary refill less than 2 seconds??no??edema Chest: wall excursion wnl no abnormal movements no obvious deformities Musculoskeletal:?Normal?? range of motion and strength??except for left ankle due to pain,??positive??tenderness??lateral ankle,??positive??swelling??lateral??ankle, dorsalis pedis and posterior ti bialis is a 2??on the left Skin: Skin is warm, dry and pink,?No??rashes,?No??lesions??no abrasion or laceration Neurologic: Awake, alert and oriented X4 Psychiatric: Cooperative, appropriate mood and affect X-ray tib-fib??positive??fibula fracture Emergency Department Splint Procedure Note Injury: _fibula fracture Splint material: _orthoglas Splint type: _posterior short leg Splint location: _left lower leg Applied by: _myself Splint was placed to ensure immobilization and adequate pain control. Adequate gauze padding was placed and the splint was secured with FRANTZ Bandage. The patient tolerated the procedure well and was neurovascularly intact distally after splinting. ?? Medical Decision Making: For MDM please see under assessment and plan Procedure No Qualifying Data Assessment/Plan 1.??Fracture of fibula??S82.409A Patient splinted in a posterior??leg splint??patient was given Dilaudid 2 mg orally here in the emergency department patient declined prescription for home??phone number was given??for follow-up withorthopedics. Ordered: Discharge Patient, 03/18/22 15:35:00 EST, Home Independently, Constant Indicator ?? Patient Education Cast or Splint Care, Adult Follow Up With When Contact Information Follow up with Orthopedic Within 1 to 2 weeks Additional Instructions: Medication Reconciliation Unchanged doxepin (doxepin 10 mg oral capsule) ?? levothyroxine (Synthroid) ?? lidocaine topical (lidocaine 5% topical film)1 patch(es) Topical (on the skin) every day. remove patches after 12 hours. Refills: 0. ?? metoprolol (metoprolol succinate) ?? multivitamin (multivitamin adult, oral tablet) ?? niacin ?? omeprazole ?? topiramate (Topamax) Problem List/Past Medical History Ongoing Asthma Central retinal vein occlusion Depressive disorder Diverticulitis Dysphagia Fibrocystic disease of breast Gastroesophageal reflux disease Migraine without aura Osteoarthritis Tension-type headache Historical No qualifying data Procedure/Surgical History ???EGD - Esophagogastroduodenoscopy (11/21/2016)???Colonoscopy (01/27/2016)???Breast lumpectomy (2009)???Colonoscopy (2009)???Dilation and curettage (05/30/2005)???Colonoscopy (2004)???Breast lumpectomy (1996)???Ovarian cystectomy (1975)???Tubal ligation Medication Administration Given Dilaudid, 2 mg, Oral Allergies HONEY NSAIDs amoxicillin??(Skin rash) aspirin??(Asthmatic breath sounds) ciprofloxacin doxycycline??(Urticaria) erythromycin??(Skin rash) influenza virus vaccine, inactivated??(Skin rash) metroNIDAZOLE??(Skin rash) sulfa drugs Social History Alcohol Never Electronic Cigarette/Vaping Electronic Cigarette Use: Never. Substance Use Never Tobacco Never tobacco user Tobacco Use:. Family History Cancer: Father. Diabetes mellitus: Sister. Heart disease: Mother. Hypertension: Mother and Sister. Electronically Signed on 03/18/22 07:28 PM Carmelita Jones MD Emergency department Discharge instructions * Carmelita Jones MD: PERFORM Event Display: ED Discharge Information Authored Date: [id number] SARA MICHAEL D :1955 Age:66 years Sex:Female Visit Date:03/18/2022 Primary Care Physician: Mercedes Chavarria PA-C Discharge Instructions We would like to thank you for allowing us to assist you with your healthcare needs. The following includes patient education materials and information regarding your injury/illness. Diagnosis from Today's Visit Fracture of fibula Discharge Vitals Temperature??(Temporal Artery) 98.2 ??F (36.8 ??C) Heart Rate??(Peripheral) 82 Respiratory Rate?? 18 Blood Pressure?? 151/90?? Height?? 59.84 in (152.000 cm) Weight??(Estimated) 128.02 lb (58.06 kg) Allergies HONEY NSAIDs amoxicillin??(Skin rash) aspirin??(Asthmatic breath sounds) ciprofloxacin doxycycline??(Urticaria) erythromycin??(Skin rash) influenza virus vaccine, inactivated??(Skin rash) metroNIDAZOLE??(Skin rash) sulfa drugs What to Do Next Instructions from Your Care Team Call orthopedics [phone] on Sunday??to schedule follow-up You may take up to Tylenol??(acetaminophen) every 6 hours as needed??for pain or discomfort for maximum 4000 mg in 24 hours or you may permanently hurt your liver. You Need to Schedule the Following Appointments Follow Up with??Follow up with Orthopedic When:??Within 1 to 2 weeks You were treated today on an emergency basis; it may be cm to contact your primary care provider to notify them of your visit today. You may have been referred to your regular doctor or a specialist, please follow up as instructed. If your condition worsens or you can't get in to see the doctor, contact the Emergency Department. Medications What How Much When Why Instructions Next Dose Unchanged doxepin (doxepin 10 mg oral capsule) Unchanged levothyroxine (Synthroid) Unchanged lidocaine topical (lidocaine 5% topical film) 1 patch(es) Topical (on the skin) Every day Chest wall pain remove patches after 12 hours ?? Unchanged metoprolol (metoprolol succinate) Unchanged multivitamin (multivitamin adult, oral tablet) Unchanged niacin Unchanged omeprazole Unchanged topiramate (Topamax) Education Materials Cast or Splint Care, Adult Casts and splints are supports that are worn to protect broken bones and other injuries. A cast or splint may hold a bone still and in the correct position while it heals. Casts and splints may also help to ease pain, swelling, and muscle spasms. A cast is a hardened support that is usually made of fiberglass or plaster. It is custom-fit to thebody and offers more protection than a splint. Most casts cannot be taken off and put back on. A splint is a type of soft support that is usually made from cloth and elastic. It can be adjusted or taken off as needed. Often when a bone is broken, a splint is put on until the swelling goes down, andthen the splint is replaced by a cast. You may need a cast or a splint if you: ? Have a broken bone. ? Have a soft-tissue injury. ? Need to keep an injured body part from moving (keep it immobile) after surgery. What are the risks? In some cases, wearing a cast or splint can cause a reduced blood supply to the wrist or hand or tothe foot and toes. This can happen if there is a lot of swelling or if the cast or splint is too tight. Limited blood supply results in a condition called compartment syndrome and can cause permanentdamage. Symptoms include: ? Pain that is getting worse. ? Numbness and tingling. ? Changes in skin color, including paleness or a bluish color. ? Cold fingers or toes. Other complications of wearing a cast or splint can include: ? Skin irritation that can cause itching, rash, skin sores, or skin infection. ? Limb stiffness or weakness. How to care for a cast ? Check the skin around it every day. Tell your health care provider about any concerns. ? Do not stick anything inside it to scratch your skin. Doing that increases your risk of infection. ? You may put lotion on dry skin around the edges of the cast. Do not put lotion on the skin underneath it. ? Keep it clean and dry. How to care for a splint ? Wear it as told by your health care provider. Remove it only as told by your health care provider. ? Check the skin around it every day. Tell your health care provider about any concerns. ? Loosen it if your fingers or toes tingle, become numb, or turn cold and blue. ? Keep it clean and dry. Clean your splint as told by your health care provider. Use mild soap and water and let it air-dry. Do not use heat on your splint. Follow these instructions at home: Bathing ? Do not take baths, swim, or use a hot tub until your health care provider approves. Ask your healthcare provider if you may take showers. You may only be allowed to take sponge baths. ? If the cast or splint is not waterproof: ? Do not let it get wet. ? Cover it with a watertight covering when you take a bath or shower. Managing pain, stiffness, and swelling ? If directed, put ice on the affected area. To do this: ? If you have a removable cast or splint, remove it as told by your health care provider. ? Put ice in a plastic bag. ? Place a towel between your skin and the bag or between your cast and the bag. ? Leave the ice on for 20 minutes, 2???3 times a day. ? Move your fingers or toes often to reduce stiffness and swelling. ? Raise (elevate) the injured area above the level of your heart while you are sitting or lying down. Safety ? Do not use the injured limb to support your body weight until your health care provider says that you can. Use crutches or other assistive devices as told by your health care provider. ? Ask your health care provider when it is safe to drive if you have a cast or splint on part of yourbody. General instructions ? Do not put pressure on any part of the cast or splint until it is fully hardened. This may take several hours. ? Take lnvd-ibk-opbqqyj and prescription medicines only as told by your health care provider. ? Do not use any products that contain nicotine or tobacco, such as cigarettes, e- cigarettes, and chewing tobacco. These can delay healing. If you need help quitting, ask your health care provider. ? Return to your normal activities as told by your health care provider. Ask your health care provider what activities are safe for you. ? Keep all follow-up visits as told by your health care provider. This is important. Contact a health care provider if: ? The skin around the cast or splint gets red or raw. ? The skin under the cast is extremely itchy or painful. ? Your cast or splint: ? Gets damaged. ? Feels very uncomfortable. ? Is too tight or too loose. ? Your cast becomes wet or develops a soft spot or area. ? You notice a bad smell coming from under your cast. ? You get an object stuck under your cast. Get help right away if: ? You develop any symptoms of compartment syndrome, such as: ? Severe pain or pressure under the cast. ? Numbness, tingling, coldness, or pale or bluish skin. ? The part of your body above or below the cast is swollen and discolored. ? You cannot feel or move your fingers or toes. ? Your pain is getting worse. ? There is fluid leaking through the cast. ? You have trouble breathing or shortness of breath. ? You have chest pain. Summary ? Casts and splints are worn to protect broken bones and other injuries. ? Most casts are not removable, and splints are removable. ? Casts and splints should remain clean and dry. ? Remove your cast or splint only as told by your health care provider. ? Get help right away if your pain gets worse, or if you have numbness, tingling, or skin that turns cold, blue, or discolored. This information is not intended to replace advice given to you by your health care provider. Make sure you discuss any questions you have with your health care provider. Document Revised: 05/12/2020 Document Reviewed: 12/04/2019 [employer] Patient Education ?? 2021 [employer] Tests Performed Medications and Immunizations Administered Given Dilaudid, 2 mg, Oral Patient/Linen Checker Signature Patient Name:MICHAEL RUIZ I have received this information and my questions have been answered. Patient/Linen Checker Name: Patient/Linen Checker Signature: Relationship to Patient: Witness Name/Signature: Date: Electronically Signed on: 03/18/2022 15:36 ESTSigned by:[facility] Emergency department Note * Michael Douglas: PERFORM Event Display: ED Notes Authored Date: [id number] Patient Care team information Personnel Name: Mercedes Chavarria PA-C Address: Address: [address], [place] [address]
[2022-10-18 20:41] LABS: BUN 15 mg/dL (7-18); CREATININE 0.8 mg/dL (0.55-1.02); Calcium 9.5 mg/dL (8.5-10.1); Chloride 106 mmol/L (98-107); Estimated GFR 80.71 (mL/min/1.73m2); Glucose 89 mg/dL (74-106); Potassium 4.5 mmol/L (3.5-5.1); Sodium 141 mmol/L (136-145); TSH (W/Ref FT4) 4.31 uIU/mL (0.36-3.74)
[2022-10-18 21:32] LABS: FREE T4 0.83 ng/dL (0.76-1.46)
== END 2022-10-18 09:29 | disposition home or self-care (01) ==
LOC: NCHCN 09:28
PROVIDERS: PCP Internal Medicine; Visit Provider Internal Medicine
DX: E03.9 Hypothyroidism, unspecified (principal)
CPT/HCPCS: 80048; 84439; 84443

== ENCOUNTER 2023-10-23 10:52 | Outpatient (REF) | payer BC, SELFPAY ==
[2023-10-23 21:32] LABS: ALT 31 U/L (14-59); AST 24 U/L (15-37); Albumin 4.2 g/dL (3.4-5.0); Alkaline Phosphatase 78 U/L (46-116); Anion Gap 9.4 mmol/L (3-11); BUN 12 mg/dL (7-18); Bilirubin, Total 0.45 mg/dL (0.2-1.0); CO2 27.6 mmol/L (21.0-32.0); CREATININE 0.9 mg/dL (0.55-1.02); Calcium 9.8 mg/dL (8.5-10.1); Calculated LDL 160 mg/dL (<100); Chloride 105 mmol/L (98-107); Cholesterol 238 mg/dL (<200); Estimated GFR 69.64 (mL/min/1.73m2); Glucose 95 mg/dL (74-106); HDL Cholesterol 48 mg/dL (40-60); Potassium 4.1 mmol/L (3.5-5.1); Sodium 142 mmol/L (136-145); TSH (W/Ref FT4) 6.71 uIU/mL (0.36-3.74); Total Protein 8.2 g/dL (6.4-8.2); Triglyceride 154 mg/dL (<150)
[2023-10-23 21:38] LABS: Hemoglobin A1C 5.9 % (<5.7)
[2023-10-23 22:00] LABS: FREE T4 0.99 ng/dL (0.76-1.46)
[2023-10-24 19:14] LABS: Hepatitis C Ab w Rflx HCV PCR Negative (Negative)
== END 2023-10-23 10:53 | disposition home or self-care (01) ==
LOC: NCHCN 10:52
PROVIDERS: PCP Internal Medicine; Visit Provider Physician Assistant
DX: E78.5 Hyperlipidemia, unspecified (principal); E03.9 Hypothyroidism, unspecified; R73.09 Other abnormal glucose; Z11.59 Encounter for screening for other viral diseases
CPT/HCPCS: 80053; 80061; 86803; 83036; 84439; 84443

== ENCOUNTER 2023-12-05 18:11 | Outpatient (REF) | payer BC, SELFPAY ==
[2023-12-05 20:04] LABS: TSH (W/Ref FT4) 3.48 uIU/mL (0.36-3.74)
== END 2023-12-05 18:12 | disposition home or self-care (01) ==
LOC: NCHCN 18:11
PROVIDERS: PCP Internal Medicine; Visit Provider Physician Assistant
DX: E03.9 Hypothyroidism, unspecified (principal)
CPT/HCPCS: 84443

== ENCOUNTER 2024-03-19 16:16 | Outpatient (REF) | payer BC, SELFPAY ==
[2024-03-21 09:46] LABS: Lyme Ab w Rflx to Lyme Confirm Positive (Negative)
[2024-03-21 13:16] LABS: Lyme IgG Ab Negative (Negative); Lyme IgM Ab Negative (Negative)
== END 2024-03-19 16:17 | disposition home or self-care (01) ==
LOC: NCHCN 16:16
PROVIDERS: PCP Internal Medicine; Visit Provider Physician Assistant
DX: M25.59 Pain in other specified joint (principal)
CPT/HCPCS: 86617; 86618

== ENCOUNTER 2024-05-16 14:41 | Outpatient (REF) | payer BC, SELFPAY | END 2024-05-16 14:42 | disposition home or self-care (01) | LOC: NCHCN 14:41 | PROVIDERS: PCP Physician Assistant; Visit Provider Physician Assistant | DX: R31.9 Hematuria, unspecified (principal); R82.89 Other abnormal findings on cytological and histological examination of urine | CPT/HCPCS: 87086 ==

== ENCOUNTER 2024-09-09 15:30 | Outpatient (REF) | payer BC, SELFPAY ==
[2024-09-09 20:35] LABS: Abs Immature Grans 0.02 10^3/uL (0.0-0.06); Absolute Basophil Count 0.07 10^3/uL (0.0-0.2); Absolute Lymphocyte Count 2.29 10^3/uL (1.2-3.4); Absolute Neutrophil Count 4.29 10^3/uL (1.2-6.7); Basophils % 0.9 %; HCT 37.5 % (36.0-46.0); HGB 12.5 g/dL (11.2-15.7); Immature Grans % 0.3 %; Lymphocytes % 30.7 %; MCH 28.2 pg (27.0-33.0); MCHC 33.3 % (32.0-36.0); MCV 85 fL (80-95); MPV 11.3 fL (8.0-11.0); Monocytes % 6.7 %; Neutrophils % 57.4 %; Platelet Count 253 10^3/uL (130-400); RBC 4.44 10^6/uL (3.93-5.22); RDW 12.5 % (11.7-14.6); RDW-SD 38.2 fL; WBC 7.47 10^3/uL (4.4-10.8)
[2024-09-09 21:04] LABS: ALT 28 U/L (14-59); AST 30 U/L (15-37); Albumin 3.9 g/dL (3.4-5.0); Alkaline Phosphatase 71 U/L (46-116); Anion Gap 7.9 mmol/L (3-11); BUN 21 mg/dL (7-18); Bilirubin, Total 0.3 mg/dL (0.2-1.0); CO2 27.1 mmol/L (21.0-32.0); Calcium 9.5 mg/dL (8.5-10.1); Chloride 103 mmol/L (98-107); Estimated GFR 60.98 (mL/min/1.73m2); Glucose 108 mg/dL (74-106); Potassium 3.9 mmol/L (3.5-5.1); Sodium 138 mmol/L (136-145); TSH (W/Ref FT4) 3.74 uIU/mL (0.36-3.74); Total Protein 7.8 g/dL (6.4-8.2)
== END 2024-09-09 15:31 | disposition home or self-care (01) ==
LOC: NCHCN 15:30
PROVIDERS: PCP Physician Assistant; Visit Provider Physician Assistant
DX: E03.9 Hypothyroidism, unspecified (principal); E78.5 Hyperlipidemia, unspecified
CPT/HCPCS: 80053; 84443; 85025